=== PATIENT | female | born 1955 | race African-American/Black ===

== ENCOUNTER 2021-06-18 10:35 | Emergency (ER) | payer OTHER ==
[~2021-06-18] VITALS: Ht 157.5 cm; Wt 46.7 kg
[2021-06-18] MEDS ORDERED: MORPHINE SULFATE 4 MG/ML DISP.SYRIN. IV ONE (12:00)
[2021-06-18] MEDS ORDERED: ONDANSETRON PF 4 MG/2 ML VIAL. IVP ONE (12:00)
--- NOTE | 2021-06-18 12:04 | PHYS DOC ---
Past History Additional Past Medical Histor: hep C with tx, "liver damage", back pain, Past Surgical History: Cholecystectomy, Additional Past Surgical Histo: stomach sx, esophagus dilation, General Adult EDM: Chief Complaint: ABDOMINAL PAIN HPI: HPI: Patient is a 65-year-old female who presents with right-sided upper quadrant pain. Patient states pain started 3 days ago. Patient's been taking Tylenol which is helped some with her pain. Patient reports pain is worse with lying down and improves when she sits up. Patient had one episode of nausea and vomiting last night. Denies recent illness or fever. Patient also states "my vagina has been itching on the outside and I have bumps on there from the scratching". Denies discharge, dysuria, odor. Patient has a history of high blood pressure and received hep C treatment. Patient states "the doctor told me I had liver damage from hep C". Review of Systems: Review of Systems: Constitutional: Denies fever or chills Eyes: Denies change in visual acuity HENT: Denies nasal congestion or sore throat Respiratory: Denies cough or shortness of breath Cardiovascular: Denies chest pain or edema GI: Reports right upper quadrant pain, nausea, vomiting, bloody stools or diarrhea : Denies dysuria Musculoskeletal: Denies back pain or joint pain Integument: Reports itchy bumps on labia Neurologic: Denies headache, focal weakness or sensory changes Endocrine: Denies polyuria or polydipsia Lymphatic: Denies swollen glands Psychiatric: Denies depression or anxiety Physical Exam: PE: Constitutional: Well developed, well nourished, no acute distress, non-toxic appearance. [] HENT: Normocephalic, atraumatic, bilateral external ears normal, oropharynx moist, no oral exudates, nose normal. [] Eyes: PERRLA, EOMI, conjunctiva normal, no discharge. [] Neck: Normal range of motion, no tenderness, supple, no stridor. [] Cardiovascular:Heart rate regular rhythm, no murmur [] Lungs & Thorax: Bilateral breath sounds clear to auscultation [] Abdomen: Bowel sounds normal, soft, right-sided upper tenderness, no masses, no pulsatile masses. [] Skin: Itchy, bumps to the left labia. No blisters seen Back: No tenderness, no CVA tenderness. [] Extremities: No tenderness, no cyanosis, no clubbing, ROM intact, no edema. [] Neurologic: Alert and oriented X 3, normal motor function, normal sensory function, no focal deficits noted. [] Psychologic: Affect normal, judgement normal, mood normal. [] Current Patient Data: Vital Signs: Vital Signs Date Time Temp Pulse Resp B/P (MAP) Pulse Ox O2 Delivery O2 Flow Rate FiO2 06/18/21 11:14 98.1 62 18 170/79 99 Room Air EKG: EKG: [] Radiology/Procedures: Radiology/Procedures: []EXAM: Chest, single view. HISTORY: Pain. COMPARISON: 05/01/2021 FINDINGS: A frontal view of the chest is obtained. There is bilateral basilar pleural parenchymal scarring and atelectasis. There is a large hiatal hernia. There is a stable prominent cardiac silhouette, likely accentuated due to the aforementioned hernia. There is biapical pleural parenchymal scarring. There is no consolidation, pleural effusion or pneumothorax. IMPRESSION: 1. Biapical and basilar pleural parenchymal scarring and atelectasis. 2. Large hiatal hernia. Electronically signed by: Estefany Trinidad MD (06/18/2021 12:37 PM) [id number] EXAM: Abdomen sonogram. HISTORY: Pain. TECHNIQUE: Sonographic imaging of the abdomen was performed. COMPARISON: CT dated 05/01/2021. FINDINGS: The liver is normal in size. No focal hepatic lesion is seen. The bladder is absent. The common bile duct is normal in caliber. The right kidney is slightly prominent in size. 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 There is no hydronephrosis. The pancreas is obscured due to bowel gas. The inferior vena cava is patent. IMPRESSION: 1. No acute sonographic finding. 2. Note is made that the biliary ductal dilatation demonstrated on the prior CT is not appreciated sonographically. Electronically signed by: Estefany Trinidad MD (06/18/2021 12:36 PM) [id number] DICTATED AND SIGNED BY: ESTEFANY TRINIDAD MD DATE: 06/18/21 1235 Heart Score: C/O Chest Pain: No Risk Factors: Risk Factors: DM, Current or recent (<one month) smoker, HTN, HLP, family history of CAD, obesity. Risk Scores: Score 0 - 3: 2.5% MACE over next 6 weeks - Discharge Home Score 4 - 6: 20.3% MACE over next 6 weeks - Admit for Clinical Observation Score 7 - 10: 72.7% MACE over next 6 weeks - Early Invasive Strategies Course & Med Decision Making: Course & Med Decision Making Pertinent Labs and Imaging studies reviewed. (See chart for details) [] 65-year-old female presents with right-sided upper quadrant pain. Pain started 3 days ago patient reports she is been taking Tylenol. Pain is increased with laying down. Patient does have a history of hepatitis C treatment which she says that she completed. Patient's PCP told her that she had liver damage from the hepatitis C. Patient reports 1 episode of vomiting yesterday. Patient is also reporting some vaginal itching on the outside of her labia. On physical exam I did not see blisters or note any odor or discharge. Patient appears to have dry skin and irritation from itching. X-ray shows hiatal hernia is contributing to her right upper quadrant pain. All labs are unremarkable. UA is negative. Discussed results with patient. Informed patient to start taking ylky-vex-wfczway occasions up with symptoms such as Prevacid. Patient should follow up with her PCP for possible GI consult for further testing if needed. Patient is hemodynamically stable upon discharge. Dragon Disclaimer: Dragon Disclaimer: This electronic medical record was generated, in whole or in part, using a voice recognition dictation system. Departure Departure: Impression: Primary Impression: Hiatal hernia Additional Impression: RUQ abdominal tenderness Qualified Codes: R10.811 - Right upper quadrant abdominal tenderness Disposition: 01 HOME / SELF CARE / HOMELESS Condition: STABLE Referrals: PCP,NO (PCP) Patient Instructions: Hiatal Hernia Additional Instructions: You are seen in the emergency room for right upper quadrant pain. All of your labs are unremarkable. Your x-ray did show a hiatal hernia. Please follow-up with your PCP for further management you may need to see a GI doctor for further testing. You can also take nasm-yui-nixbwqv medication such as Prilosec or Pepcid to help with symptoms. Continue putting Vaseline on the areas of your vagina that are itchy. This will help with dryness. Please return to the emergency room if you have worsening symptoms or concerns. EMERGENCY DEPARTMENT GENERAL DISCHARGE INSTRUCTIONS Thank you for coming to [facility] (ED) today and trusting us with you care. We trust that you had a positivie experience in our Emergency Department. If you wish to speak to the department management, you may call the director at [phone]. YOUR FOLLOW UP INSTRUCTIONS ARE FOLLOWS: 1. Do you have a private Doctor? If you do not have a private doctor, please ask for a resource list of physicians or clinics that may be able to assist you with follow up care. 2. The Emergency Physician has interpreted your x-rays. The X-Ray specialist will also review them. If there is a change in the findings, you will be notified in 48 hours when at all possible. 3. A lab test or culture has been done, your results will be reviewed and you will be notified if you need a change in treatment. ADDITIONAL INSTRUCTIONS AND INFORMATION: 1. Your care today has been supervised by a physician who is specially trained in emergency care. Many problems require more than one evaluation for a complete diagnosis and treatment. We recommend that you schedule your follow up appointment as recommended to ensure complete treatment of you illness or injury. If you are unable to obtain follow up care and continue to have a problem, or if your condition worsens, we recommend that you return to the ED. 2. We are not able to safely determine your condition over the phone nor are we able to give sound medical advice over the phone. For these safety reasons, if you call for medical advice we will ask you to come to the ED for further evaluation. 3. If you have any questions regarding these discharge instructions please call the ED at [phone]. SAFETY INFORMATION: In the interest of safety, wellness, and injury prevention; we encourage you to wear your sealbelt, if you smoke; quite smoking, and we encourage family to use a protective helmet for bicycling and other sporting events that present an increased risk for head injury. IF YOUR SYMPTOMS WORSEN OR NEW SYMPTOMS DEVELOP, OR YOU HAVE CONCERNS ABOUT YOUR CONDITION; OR IF YOUR CONDITION WORSENS WHILE YOU ARE WAITING FOR YOUR FOLLOW UP APPOINTME NT; EITHER CONTACT YOUR PRIMARY CARE DOCTOR, THE PHYSICIAN WHOSE NAME AND NUMBER YOU WERE GIVEN, OR RETURN TO THE ED IMMEDIATELY. SHABBIR BAI APRN Jun 18, 2021 12:04
--- NOTE | 2021-06-18 12:39 | RAD ---
EXAM: Abdomen sonogram. HISTORY: Pain. TECHNIQUE: Sonographic imaging of the abdomen was performed. COMPARISON: CT dated 05/01/2021. FINDINGS: The liver is normal in size. No focal hepatic lesion is seen. The bladder is absent. The co mmon bile duct is normal in caliber. The right kidney is slightly prominent in size. This is likely d ue to a partially duplicated renal collecting system. There is no hydronephrosis. The pancreas is obs cured due to bowel gas. The inferior vena cava is patent. IMPRESSION: 1. No acute sonographic finding. 2. Note is made that the biliary ductal dilatation demonstrated on the prior CT is not appreciated so nographically. Electronically signed by: Estefany Trinidad MD (06/18/2021 12:36 PM) [id number]
--- NOTE | 2021-06-18 12:40 | RAD ---
EXAM: Chest, single view. HISTORY: Pain. COMPARISON: 05/01/2021 FINDINGS: A frontal view of the chest is obtained. There is bilateral basilar pleural parenchymal sca rring and atelectasis. There is a large hiatal hernia. There is a stable prominent cardiac silhouette , likely accentuated due to the aforementioned hernia. There is biapical pleural parenchymal scarring . There is no consolidation, pleural effusion or pneumothorax. IMPRESSION: 1. Biapical and basilar pleural parenchymal scarring and atelectasis. 2. Large hiatal hernia. Electronically signed by: Estefany Trinidad MD (06/18/2021 12:37 PM) [id number]
[2021-06-18 13:02] LABS: BASO % 0 % (0-3); EOS # 0.1 x10^3/uL (0.0-0.7); EOS % 1 % (0-3); HEMATOCRIT 37.8 % (36.0-47.0); HEMOGLOBIN 12.4 g/dL (12.0-15.5); LYMPH # 1.4 x10^3/uL (1.0-4.8); LYMPH % 25 % (24-48); MEAN CORPUSCULAR HEMOGLOBIN 33 pg (25-35); MEAN CORPUSCULAR HGB CONC 33 g/dL (31-37); MEAN CORPUSCULAR VOLUME 99 fL (79-100); MONO # 0.3 x10^3/uL (0.0-1.1); MONO % 5 % (0-9); NEUT # 3.8 x10^3uL (1.8-7.7); NEUT % 68 % (31-73); PLATELET COUNT 151 x10^3/uL (140-400); RED CELL DISTRIBUTION WIDTH 14.6 % (11.5-14.5); WHITE BLOOD COUNT 5.6 x10^3/uL (4.0-11.0)
[2021-06-18 13:11] LABS: CALCIUM 8.9 mg/dL (8.5-10.1); CREATININE 0.8 mg/dL (0.6-1.0); GFR 86.8; POTASSIUM 4.7 mmol/L (3.5-5.1)
[2021-06-18 13:17] LABS: ALBUMIN 3.6 g/dL (3.4-5.0); DIRECT BILIRUBIN 0.2 mg/dL (0.0-0.2); TOTAL BILIRUBIN 0.8 mg/dL (0.2-1.0); TOTAL PROTEIN 7.2 g/dL (6.4-8.2)
[2021-06-18 13:43] LABS: BACTERIA,URINE 0 /HPF (0-FEW); BILIRUBIN,URINE NEG (NEG); CLARITY,URINE CLEAR; COLOR,URINE YELLOW; GLUCOSE,URINE NEG (NEG); NITRITE,URINE NEG (NEG); RBC,URINE 0 /HPF (0-2); SQUAMOUS EPITHELIAL CELL,UR FEW /LPF; UROBILINOGEN,URINE 0.2 mg/dL (0.2 mg/dL); WBC,URINE OCC /HPF (0-4)
--- NOTE | 2021-06-18 13:59 | EKG ---
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
[2021-06-18 14:20] VITALS: BP 142/66
== END 2021-06-18 14:30 | disposition home or self-care (01) ==
LOC: ER 10:35
DX: K44.9 Diaphragmatic hernia without obstruction or gangrene (principal); R11.2 Nausea with vomiting, unspecified; Z90.49 Acquired absence of other specified parts of digestive tract
CPT/HCPCS: 36415; 71045; 76705; 80053; 80076; 81001; 82247; 83690; 85025; 87491; 87591; 93005; 96374; 96375; 99285; J2270; J2405

== ENCOUNTER 2021-11-17 12:06 | Emergency (ER) | payer MEDICARE, OTHER ==
[~2021-11-17] VITALS: Ht 157.5 cm; Wt 46.7 kg
[2021-11-17] MEDS ORDERED: ACETAMINOPHEN 500 MG TABLET PO ONE (12:30)
[2021-11-17] MEDS ORDERED: IV NORMAL SALINE 1,000ML 1,000 ML IV ONE (12:30)
[2021-11-17] MEDS ORDERED: ONDANSETRON PF 4 MG/2 ML VIAL. IVP ONE (12:30)
--- NOTE | 2021-11-17 13:30 | PHYS DOC ---
Past History Additional Past Medical Histor: hep C with tx, "liver damage", back pain, Past Surgical History: Cholecystectomy, Additional Past Surgical Histo: stomach sx, esophagus dilation, Alcohol Use: None General Adult EDM: Chief Complaint: MULTIPLE COMPLAINTS HPI: HPI: Patient is a 66-year-old female coming in for multiple complaints. Patient is complaining of bilateral leg pain, right flank pain, nausea and vomiting, diarrhea, and cough. Patient has not had her Covid vaccine Review of Systems: Review of Systems: All other systems within normal limits except for as noted in the HPI Current Medications: Current Meds: Current Medications Medications (Trade) Dose Ordered Sig/Estrella Start Time Stop Time Status Last Admin Dose Admin Acetaminophen (Tylenol) 1,000 mg 1X ONCE 11/17/21 12:30 11/17/21 12:45 DC Ondansetron HCl (Zofran) 4 mg 1X ONCE 11/17/21 12:30 11/17/21 12:45 DC Sodium Chloride 1,000 ml @ 1,000 mls/hr 1X ONCE 11/17/21 12:30 11/17/21 13:29 Allergies: Allergies: Allergies Coded Allergies Type Severity Reaction Last Updated Verified No Known Drug Allergies 06/18/21 No Physical Exam: PE: Constitutional: Well developed, well nourished, retching, acute distress, non- toxic appearance. [] HENT: Normocephalic, atraumatic, bilateral external ears normal, nose normal. [] Eyes: PERRLA, conjunctiva normal, no discharge. [] Neck: No rigidity, supple, no stridor. [] Cardiovascular: Regular rate and rhythm, brisk cap refill [] Lungs & Thorax: Non labored symmetric respirations, no tachypnea or respiratory distress [] Abdomen: Soft, nondistended. Skin: Warm, dry, no erythema, no rash. [] Back: Unremarkable Extremities: No deformities, range of motion grossly intact, no lower extremity edema [] Neurologic: Alert and oriented X 3, no focal deficits noted. [] Psychologic: Affect normal, judgement normal, mood normal. [] EKG: EKG: Sinus rhythm, heart rate 90 beats minute, normal axis, LVH [] Radiology/Procedures: Radiology/Procedures: [address] [address] IMAGING REPORT Signed PATIENT: BRE CORNEJO ACCOUNT: [id number] : 1955 LOCATION: ER AGE: 66 SEX: F EXAM STATUS: REG ER ORD. PHYSICIAN: TANESHA GIPSON MD REASON: right chest and flank pain PROCEDURE: CT CHEST ABD PELVIS W/CONTRAST CT chest, abdomen and pelvis with contrast: Reason for examination: Right chest and flank pain. Helical images were obtained through the chest, abdomen and pelvis with intravenous administration of 75 cc Isovue-300. Reconstruction was performed in sagittal and coronal planes. Exposure: One or more of the following individualized dose reduction techniques were utilized for this examination: 1. Automated exposure control 2. Adjustment of the mA and/or kV according to patient size 3. Use of iterative reconstruction technique. No abnormality seen at the thyroid gland. The trachea and mainstem bronchi show no intraluminal lesions. Postop changes from previous esophagectomy with gastric pull-through. The thoracic aorta shows no aneurysmal dilatation or dissection. The heart size is normal with no pericardial effusion. There is some linear density consistent with probable atelectasis at the lung bases. There are emphysematous changes bilaterally. No pneumothorax or pleural effusions are evident. No acute bony abnormalities are seen in the thorax. Note is made of focal bony bridging laterally between the left seventh and eighth ribs and left eighth and ninth ribs. No focal abnormality seen at the liver, spleen, adrenal glands or pancreas. The gallbladder surgically absent and there does appear to be some mild dilatation of the common bile duct down to the pancreatic head The kidneys show a small cyst in the upper pole of the right kidney and at the lower pole of the right kidney. No renal calculi, hydronephrosis or obstructive uropathy is evident. The colon shows changes consistent with diverticulosis in the sigmoid colon without diverticulitis. There is no colitis. The appendix is not identified. The small intestinal tract shows no abnormal dilatation, wall thickening or obstruction. No abnormality seen at the bladder. No pelvic masses are seen. There is no free fluid or free air seen in the abdomen or pelvis. There are severe degenerative changes at the L5-S1 disc level. No acute bony abnormalities are seen. IMPRESSION: Postop changes from esophagectomy with gastric pull-through. Atelectasis at the lung bases. Emphysematous changes bilaterally in the lung myrick. Small cysts in the upper and lower pole of the right kidney. Diverticulosis in the sigmoid colon without evidence of diverticulitis. Severe degenerative changes at the L5-S1 disc level. Electronically signed by: Mars Neal MD (11/17/2021 3:24 PM) [facility] DICTATED AND SIGNED BY: MARS NEAL MD DATE: 11/17/21 3856 CC: TANESHA GIPSON MD; PCP,NO ~MTH0 0 [] Heart Score: C/O Chest Pain: No Risk Factors: Risk Factors: DM, Current or recent (<one month) smoker, HTN, HLP, family history of CAD, obesity. Risk Scores: Score 0 - 3: 2.5% MACE over next 6 weeks - Discharge Home Score 4 - 6: 20.3% MACE over next 6 weeks - Admit for Clinical Observation Score 7 - 10: 72.7% MACE over next 6 weeks - Early Invasive Strategies Course & Med Decision Making: Course & Med Decision Making Pertinent Labs and Imaging studies reviewed. (See chart for details) [] Dragon Disclaimer: Dragon Disclaimer: This electronic medical record was generated, in whole or in part, using a voice recognition dictation system. Departure Departure: Impression: Primary Impression: Nausea & vomiting Additional Impression: COVID Disposition: 01 HOME / SELF CARE / HOMELESS Condition: STABLE Referrals: PCP,NO (PCP) Patient Instructions: Nausea and Vomiting Additional Instructions: You have been tested for or diagnosed with COVID-19. It is an infection caused by a new type of coronavirus. COVID-19 will cause cold-like or mild flu symptoms in most. It can cause more severe symptoms like problems breathing in some. There is no treatment for COVID-19. The body will clear the infection over time. Self-care will help to ease discomfort. Steps to Take: Self-Care Rest as needed. Healthy habits may help you feel better. Steps include: Choose healthy foods including fruits and vegetables. Drink water throughout the day. Get plenty of sleep each night. If you smoke, try to quit. It may ease breathing. Avoid alcohol. Keep Others Healthy The virus can spread to others. Droplets are released every time you sneeze or cough. The droplets can get into the mouth, nose, or eyes of people near you and lead to infection. To lower the chances of spreading COVID-19 to others: Stay at home until your doctor has said it is safe to leave. If you tested positive this will mean staying isolated until both of the following are true: At least 7 days have passed since the start of illness. You are free of fever for at least 72 hours without the use of medicine. During this time: - Avoid public areas, events, or transportation. Do not return to work or school until your doctor has said it is safe to do so. - Call ahead if you need to go to a medical center. Let them know you may have COVID-19. It will help them guide you where to go. They may also ask you to wear a facemask when you come to the office. - If you call for emergency medical services, let them know you may have COVID- 19. While at home: - Try to avoid close contact with others. Stay about 6 feet away. - If possible, spend most of your time in a separate room from others. - Use a face mask if you will be in close contact with others such as sharing a room or vehicle. - Have someone wipe down common surfaces in the home. Use household kitchen hand every day on areas like doorknobs, counters, or sinks. - Cough or sneeze into a tissue. Throw the tissue away right after use. If a tissue is not available, cough or sneeze into your elbow. - Wash your hands often. Wash them after sneezing or coughing. Use soap and w ater and wash for at least 20 seconds. Alcohol based hand vat cleaner can be used if soap and water is not available. - Do not prepare food for others. Avoid sharing personal items like forks, spoons, or toothbrushes. - Avoid close contact with pets while you are sick. There is no evidence of the virus passing to pets. This is a safety step until more is known about this virus. Isolation can be frustrating. Social interaction can help. Keep in touch with friends and family through phone and tech options. You can still interact with others in your home, just keep a safe distance of about 6 feet. Follow-up: Your doctors office will check in with you to see if there are any changes in your health. You may be asked to keep track of symptoms to share with them. They will also let you know when you are clear to be in public again. Problems to Look Out For: Contact your doctor if your recovery is not going as you expect. Get emergency care if you have problems such as: - Trouble breathing - Nonstop chest pain or pressure - Changes in awareness, confusion, or problems waking - Lips or face have bluish color - Worsening of symptoms If you think you have an emergency, call for emergency medical services right away. As taken from [facility] Acetaminophen With Codeine (ACETAMINOPHEN-COD #3 TABLET) 1 Each Tablet 1 TAB PO PRN Q4HRS PRN for PAIN for 3 Days, #10 TAB Prov: TANESHA GIPSON MD 11/17/21 Ondansetron (ONDANSETRON ODT) 4 Mg Tab.rapdis 1 TAB PO PRN Q6-8HRS PRN for NAUSEA, #16 TAB Prov: TANESHA GIPSON MD 11/17/21 Metoprolol Tartrate (METOPROLOL TARTRATE) 100 Mg Tablet 1 TAB PO DAILY for htn for 30 Days, #30 TAB 5 Refills Prov: TANESHA GIPSON MD 11/17/21 TANESHA GIPSON MD Nov 17, 2021 13:30
[2021-11-17 13:31] LABS: INFLUENZA A PATIENT NEGATIVE (NEGATIVE); INFLUENZA B PATIENT NEGATIVE (NEGATIVE)
[2021-11-17 13:53] LABS: BASO % 0 % (0-3); EOS % 0 % (0-3); HEMATOCRIT 38.7 % (36.0-47.0); HEMOGLOBIN 12.8 g/dL (12.0-15.5); LYMPH # 1.3 x10^3/uL (1.0-4.8); LYMPH % 29 % (24-48); MEAN CORPUSCULAR HEMOGLOBIN 33 pg (25-35); MEAN CORPUSCULAR HGB CONC 33 g/dL (31-37); MEAN CORPUSCULAR VOLUME 99 fL (79-100); MONO # 0.5 x10^3/uL (0.0-1.1); MONO % 12 % (0-9); NEUT # 2.6 x10^3uL (1.8-7.7); NEUT % 59 % (31-73); PLATELET COUNT 124 x10^3/uL (140-400); RED CELL DISTRIBUTION WIDTH 13.8 % (11.5-14.5); WHITE BLOOD COUNT 4.5 x10^3/uL (4.0-11.0)
[2021-11-17 14:06] LABS: CALCIUM 9.2 mg/dL (8.5-10.1); CREATININE 0.7 mg/dL (0.6-1.0)
[2021-11-17 14:19] LABS: ALBUMIN 4.1 g/dL (3.4-5.0); ALBUMIN/GLOBULIN RATIO 1.1 (1.0-1.7); MAGNESIUM 1.9 mg/dL (1.8-2.4); TOTAL BILIRUBIN 0.4 mg/dL (0.2-1.0); TOTAL PROTEIN 7.8 g/dL (6.4-8.2)
[2021-11-17] MEDS ORDERED: IOHEXOL 300 MG/ML 75 ML VIAL. IV ONE (14:30)
--- NOTE | 2021-11-17 15:26 | RAD ---
CT chest, abdomen and pelvis with contrast: Reason for examination: Right chest and flank pain. Helical images were obtained through the chest, abdomen and pelvis with intravenous administration of 75 cc Isovue-300. Reconstruction was performed in sagittal and coronal planes. Exposure: One or more of the following individualized dose reduction techniques were utilized for thi s examination: 1. Automated exposure control 2. Adjustment of the mA and/or kV according to patient size 3. Use of iterative reconstruction technique. No abnormality seen at the thyroid gland. The trachea and mainstem bronchi show no intraluminal lesions. Postop changes from previous esophagec mounika with gastric pull-through. The thoracic aorta shows no aneurysmal dilatation or dissection. The heart size is normal with no per icardial effusion. There is some linear density consistent with probable atelectasis at the lung bases. There are emphys ematous changes bilaterally. No pneumothorax or pleural effusions are evident. No acute bony abnormalities are seen in the thorax. Note is made of focal bony bridging laterally bet ween the left seventh and eighth ribs and left eighth and ninth ribs. No focal abnormality seen at the liver, spleen, adrenal glands or pancreas. The gallbladder surgicall y absent and there does appear to be some mild dilatation of the common bile duct down to the pancrea tic head The kidneys show a small cyst in the upper pole of the right kidney and at the lower pole of the righ t kidney. No renal calculi, hydronephrosis or obstructive uropathy is evident. The colon shows changes consistent with diverticulosis in the sigmoid colon without diverticulitis. T here is no colitis. The appendix is not identified. The small intestinal tract shows no abnormal dila tation, wall thickening or obstruction. No abnormality seen at the bladder. No pelvic masses are seen. There is no free fluid or free air seen in the abdomen or pelvis. There are severe degenerative changes at the L5-S1 disc level. No acute bony abnormalities are seen. IMPRESSION: Postop changes from esophagectomy with gastric pull-through. Atelectasis at the lung bases. Emphysematous changes bilaterally in the lung myrick. Small cysts in the upper and lower pole of the right kidney. Diverticulosis in the sigmoid colon without evidence of diverticulitis. Severe degenerative changes at the L5-S1 disc level. Electronically signed by: Hyacinth Clancy MD (11/17/2021 3:24 PM) DEAN
[2021-11-17 15:35] VITALS: BP 196/112
[2021-11-17] MEDS ORDERED: METO100T7 PO ×2 (15:56→16:00)
[2021-11-17] MEDS ORDERED: ONDA4TAB12 PO ×2 (15:56→16:00)
[2021-11-17] MEDS ORDERED: ACET1TAB33 PO ×2 (15:56→16:00)
[2021-11-17 16:00] LABS: BILIRUBIN,URINE NEG (NEG); CLARITY,URINE CLEAR; COLOR,URINE YELLOW; GLUCOSE,URINE NEG (NEG)
[2021-11-17 16:01] LABS: BACTERIA,URINE 0 /HPF (0-FEW); NITRITE,URINE NEG (NEG); RBC,URINE OCC /HPF (0-2); SQUAMOUS EPITHELIAL CELL,UR MANY /LPF; UROBILINOGEN,URINE 0.2 mg/dL (0.2 mg/dL); WBC,URINE 0 /HPF (0-4)
--- NOTE | 2021-11-17 16:03 | EKG ---
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
== END 2021-11-17 16:10 | disposition home or self-care (01) ==
LOC: ER 12:06
DX: U07.1 COVID-19 (principal); R11.2 Nausea with vomiting, unspecified; M79.605 Pain in left leg; M79.604 Pain in right leg; R19.7 Diarrhea, unspecified
CPT/HCPCS: 71260; 74177; 80053; 81001; 82550; 83605; 83735; 83880; 84484; 85025; 85379; 87426; 87804; 93005; 96361; 96374; 99285; J2405; J7030; Q9967

== ENCOUNTER 2021-12-18 13:53 | Emergency (ER) | payer MEDICARE, OTHER ==
[~2021-12-18] VITALS: Ht 157.5 cm; Wt 48.2 kg
[~2021-12-18 13:53] MED LIST: ACET1TAB33 PO; METO100T7 PO; ONDA4TAB12 PO
[2021-12-18] MEDS: LIDO:MAALOX 1:1 20 ML SINGLE DOSE. PO ONE (14:33)
[2021-12-18 14:52] LABS: BACTERIA,URINE MOD /HPF (0-FEW); BILIRUBIN,URINE NEG (NEG); CLARITY,URINE CLEAR; COLOR,URINE YELLOW; GLUCOSE,URINE NEG (NEG); NITRITE,URINE NEG (NEG); RBC,URINE 0 /HPF (0-2); SQUAMOUS EPITHELIAL CELL,UR OCC /LPF; UROBILINOGEN,URINE 0.2 mg/dL (0.2 mg/dL)
[2021-12-18 14:56] LABS: BASO % 1 % (0-3); EOS # 0.1 x10^3/uL (0.0-0.7); EOS % 2 % (0-3); HEMATOCRIT 34.1 % (36.0-47.0); HEMOGLOBIN 11.3 g/dL (12.0-15.5); LYMPH # 1.5 x10^3/uL (1.0-4.8); LYMPH % 37 % (24-48); MEAN CORPUSCULAR HEMOGLOBIN 33 pg (25-35); MEAN CORPUSCULAR HGB CONC 33 g/dL (31-37); MEAN CORPUSCULAR VOLUME 100 fL (79-100); MONO # 0.3 x10^3/uL (0.0-1.1); MONO % 8 % (0-9); NEUT # 2.1 x10^3uL (1.8-7.7); NEUT % 52 % (31-73); PLATELET COUNT 146 x10^3/uL (140-400); RED BLOOD COUNT 3.43 x10^6/uL (3.50-5.40); RED CELL DISTRIBUTION WIDTH 14.1 % (11.5-14.5)
[2021-12-18 15:04] LABS: CALCIUM 9.2 mg/dL (8.5-10.1); CREATININE 0.8 mg/dL (0.6-1.0); GFR 86.6
[2021-12-18 15:11] LABS: ALBUMIN 3.5 g/dL (3.4-5.0); ALBUMIN/GLOBULIN RATIO 0.9 (1.0-1.7); TOTAL BILIRUBIN 0.5 mg/dL (0.2-1.0); TOTAL PROTEIN 7.2 g/dL (6.4-8.2)
--- NOTE | 2021-12-18 15:21 | PHYS DOC ---
Past History Additional Past Medical Histor: hep C with tx, "liver damage", back pain, (LUCAS PARSON) Past Surgical History: Cholecystectomy, Additional Past Surgical Histo: stomach sx, esophagus dilation, (LUCAS PARSON) Smoking: Quit Greater Than 1 Year Alcohol Use: None Drug Use: Marijuana (LUCAS PARSON) General Adult EDM: Chief Complaint: ABDOMINAL PAIN HPI: HPI: Patient is a 66 year old female with extensive GI history who presents with right-sided abdominal pain. Patient rates her pain as moderate and right-sided extending from the right lower quadrant through the right upper quadrant. This is similar to the pain she was experiencing on her visit to the emergency department 1 month ago. At that time, she was diagnosed with COVID-19. Patient has additional complaint of having run out of her metoprolol that she takes for high blood pressure and pantoprazole for GERD. Patient reports she has taken her daughter's blood pressure medication over the past 3 days. She states that while she has passed bowel movements, they have been smaller than normal for a couple of weeks. Patient denies nausea, vomiting, diarrhea, fever, chills, weakness. (LUCAS PARSON) Review of Systems: Review of Systems: Constitutional: Denies fever, chills or generalized weakness Eyes: Denies change in visual acuity, visual field deficits or discharge HENT: Denies ear pain, nasal congestion or sore throat Respiratory: Denies cough or shortness of breath Cardiovascular: Denies chest pain, palpitations or edema GI: Denies nausea, vomiting, bloody stools or diarrhea. Reports abdominal pain, constipation. : Denies dysuria or hematuria Musculoskeletal: Denies back pain or joint pain Integument: Denies rash or other skin lesion Neurologic: Denies headache, focal weakness or sensory changes (LUCAS PARSON) Current Medications: Current Meds: Current Medications Medications (Trade) Dose Ordered Sig/Estrella Route PRN Reason Start Time Stop Time Status Last Admin Dose Admin Multi-Ingredient Mouthwash/Gargle (Gi Cocktail) 20 ml 1X ONCE PO 12/18/21 14:15 12/18/21 14:18 DC 12/18/21 14:33 Acetaminophen (Tylenol) 650 mg 1X ONCE PO 12/18/21 15:45 12/18/21 15:46 DC 12/18/21 16:13 Polyethylene Glycol (miraLAX) 34 gm 1X ONCE PO 12/18/21 15:45 12/18/21 15:46 DC 12/18/21 16:13 (LUCAS PARSON) Allergies: Allergies: Allergies Coded Allergies Type Severity Reaction Last Updated Verified No Known Drug Allergies 06/18/21 No (LUCAS PARSON) Physical Exam: PE: Constitutional: Well developed, well nourished, no acute distress, non-toxic appearance. HENT: Normocephalic, atraumatic, bilateral external ears normal, nose normal. Eyes: EOMI, conjunctiva normal, no discharge. Neck: Normal range of motion, no stridor. Abdomen: Bowel sounds normal, right sided tenderness with mild firmness, no rebound tenderness or guarding, negative Rovsing sign, negative McBurneys point tenderness, no pain elicited on heel strike, no masses, no pulsatile masses. Skin: Warm, dry, no erythema, no rash. Extremities: No tenderness, no cyanosis, no clubbing, ROM intact. Neurologic: Alert and oriented x4, no focal deficits noted. (LUCAS PARSON) Current Patient Data: Labs: Laboratory Tests Test 12/18/21 14:20 12/18/21 14:30 Urine Collection Type Unknown Urine Color Yellow Urine Clarity Clear Urine pH 5.5 Urine Specific [place] >=1.030 Urine Protein Neg (NEG-TRACE) Urine Glucose (UA) Neg mg/dL (NEG) Urine Ketones (Stick) Neg mg/dL (NEG) Urine Blood Neg (NEG) Urine Nitrite Neg (NEG) Urine Bilirubin Neg (NEG) Urine Urobilinogen Dipstick 0.2 mg/dL (0.2 mg/dL) Urine Leukocyte Esterase Neg (NEG) Urine RBC 0 /HPF (0-2) Urine WBC 5-10 /HPF (0-4) Urine Squamous Epithelial Cells Occ /LPF Urine Bacteria Mod /HPF (0-FEW) White Blood Count 4.0 x10^3/uL (4.0-11.0) Red Blood Count 3.43 x10^6/uL (3.50-5.40) L Hemoglobin 11.3 g/dL (12.0-15.5) L Hematocrit 34.1 % (36.0-47.0) L Mean Corpuscular Volume 100 fL (79-100) Mean Corpuscular Hemoglobin 33 pg (25-35) Mean Corpuscular Hemoglobin Concent 33 g/dL (31-37) Red Cell Distribution Width 14.1 % (11.5-14.5) Platelet Count 146 x10^3/uL (140-400) Neutrophils (%) (Auto) 52 % (31-73) Lymphocytes (%) (Auto) 37 % (24-48) Monocytes (%) (Auto) 8 % (0-9) Eosinophils (%) (Auto) 2 % (0-3) Basophils (%) (Auto) 1 % (0-3) Neutrophils # (Auto) 2.1 x10^3uL (1.8-7.7) Lymphocytes # (Auto) 1.5 x10^3/uL (1.0-4.8) Monocytes # (Auto) 0.3 x10^3/uL (0.0-1.1) Eosinophils # (Auto) 0.1 x10^3/uL (0.0-0.7) Basophils # (Auto) 0.0 x10^3/uL (0.0-0.2) Sodium Level 141 mmol/L (136-145) Potassium Level 4.0 mmol/L (3.5-5.1) Chloride Level 104 mmol/L (98-107) Carbon Dioxide Level 29 mmol/L (21-32) Anion Gap 8 (6-14) Blood Urea Nitrogen 15 mg/dL (7-20) Creatinine 0.8 mg/dL (0.6-1.0) Estimated GFR (Cockcroft-Gault) 86.6 BUN/Creatinine Ratio 19 (6-20) Glucose Level 104 mg/dL (70-99) H Calcium Level 9.2 mg/dL (8.5-10.1) Total Bilirubin 0.5 mg/dL (0.2-1.0) Aspartate Amino Transferase (AST) 25 U/L (15-37) Alanine Aminotransferase (ALT) 28 U/L (14-59) Alkaline Phosphatase 103 U/L (46-116) Total Protein 7.2 g/dL (6.4-8.2) Albumin 3.5 g/dL (3.4-5.0) Albumin/Globulin Ratio 0.9 (1.0-1.7) L Lipase 63 U/L (73-393) L Vital Signs: Vital Signs Date Time Temp Pulse Resp B/P (MAP) Pulse Ox O2 Delivery O2 Flow Rate FiO2 12/18/21 14:05 98.2 83 20 115/49 (71) 99 Room Air (LUCAS PARSON) Heart Score: C/O Chest Pain: No (LUCAS PARSON) Course & Med Decision Making: Course & Med Decision Making Pertinent Labs and Imaging studies reviewed. (See chart for details) Work-up today included labs, urinalysis. CT imaging was deferred secondary to unchanged symptomatology since last CT scan 1 month ago. Work-up unremarkable. Patient provided with GI cocktail with some symptom improvement and stool softener to encourage passage of significant bowel movemen t. 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 At this time, patient has nonsurgical abdomen and work-up is not concerning for acute pathology. Patient was provided with instruction for symptomatic treatment and return precautions. She understands and is agreeable to discharge plan. (LUCAS PARSON) Dragon Disclaimer: Dragon Disclaimer: This electronic medical record was generated, in whole or in part, using a voice recognition dictation system. (LUCAS PARSON) Attending Co-Sign The patient was seen and interviewed as well as examined at the bedside. The chart was reviewed. The case was discussed. Agree with the plan of care. (GOLD JAUREGUI DO) Departure Departure: Impression: Primary Impression: Chronic abdominal pain Additional Impressions: Hx of primary hypertension Constipation Qualified Codes: K59.00 - Constipation, unspecified Disposition: HOME / SELF CARE / HOMELESS Condition: STABLE Referrals: PCP,NO (PCP) MICHELLE VARGAS MD Patient Instructions: Abdominal Pain, [id number], Constipation, Adult, [id number], Gastritis, Adult, [id number] Additional Instructions: EMERGENCY DEPARTMENT GENERAL DISCHARGE INSTRUCTIONS Thank you for coming to [facility] (ED) today and trusting us with you care. We trust that you had a positive experience in our Emergency Department. If you wish to speak to the department management, you may call the director at [phone]. YOUR FOLLOW UP INSTRUCTIONS ARE FOLLOWS: 1. Follow up with your primary care doctor. If you do not have a primary doctor, please ask for a resource list of physicians or clinics that may be able to assist you with follow up care. 2. The emergency provider has interpreted your imaging studies, if any were ordered. The radiology auto adjudication specialist also reviewed them. If there is a change in the findings, you will be notified in 48 hours when at all possible. 3. If a lab test or culture has been done, your results will be reviewed and you will be notified if you need a change in treatment. 4. Follow instructions verbalized to you and refer to the printouts if needed. ADDITIONAL INSTRUCTIONS AND INFORMATION: 1. Your care today has been supervised by a physician who is specially trained in emergency care. Many problems require more than one evaluation for a complete diagnosis and treatment. We recommend that you schedule your follow up appointment as recommended to ensure complete treatment of you illness or injury. If you are unable to obtain follow up care and continue to have a problem, or if your condition worsens, we recommend that you return to the ED. 2. We are not able to safely determine your condition over the phone nor are we able to give sound medical advice over the phone. For these safety reasons, if you call for medical advice we will ask you to come to the ED for further evaluation. 3. If you have any questions regarding these discharge instructions please call the ED at [phone]. SAFETY INFORMATION: In the interest of safety, wellness, and injury prevention; we encourage you to wear your seat belt, if you smoke; quite smoking, and we encourage family to use a protective helmet for bicycling and other sporting events that present an increased risk for head injury. IF YOUR SYMPTOMS WORSEN OR NEW SYMPTOMS DEVELOP, OR YOU HAVE CONCERNS ABOUT YOUR CONDITION; OR IF YOUR CONDITION WORSENS WHILE YOU ARE WAITING FOR YOUR FOLLOW UP APPOINTMENT; EITHER CONTACT YOUR PRIMARY CARE DOCTOR, THE PHYSICIAN WHOSE NAME AND NUMBER YOU WERE GIVEN, OR RETURN TO THE ED IMMEDIATELY. Scripts Pantoprazole Sodium (PANTOPRAZOLE SODIUM) 40 Mg Tablet. 1 TAB PO DAILY for GERD, #30 TAB 0 Refills Prov: LUCAS PARSON 12/18/21 Metoprolol Tartrate (METOPROLOL TARTRATE) 100 Mg Tablet 1 TAB PO BID for HTN, #60 TAB 0 Refills Prov: LUCAS PARSON 12/18/21 LUCAS PARSON Dec 18, 2021 15:20 GOLD JAUREGUI DO Dec 19, 2021 10:15
[2021-12-18 15:39] VITALS: BP 124/61
[2021-12-18] MEDS ORDERED: PANT40TA6 PO (15:53)
[2021-12-18] MEDS ORDERED: METO100T7 PO (15:53)
[2021-12-18] MEDS: POLYETHYLENE GLYCOL 3350 17 GM PACKET. PO ONE (16:13)
[2021-12-18] MEDS: ACETAMINOPHEN 325 MG TABLET PO ONE (16:13)
== END 2021-12-18 16:15 | disposition home or self-care (01) ==
LOC: ER 13:53
DX: K59.00 Constipation, unspecified (principal); G89.29 Other chronic pain; I10 Essential (primary) hypertension; Z87.891 Personal history of nicotine dependence; Z90.49 Acquired absence of other specified parts of digestive tract
CPT/HCPCS: 36415; 80053; 81001; 83690; 85025; 87077; 87086; 87186; 99284